=== PATIENT | male | born 1980 | race African-American/Black ===

== ENCOUNTER 2018-06-01 21:58 | Emergency (ER) | payer SELFPAY ==
[~2018-06-01] VITALS: Ht 193 cm; Wt 85.9 kg
[2018-06-01 21:59] VITALS: BP 122/83
--- NOTE | 2018-06-01 22:04 | NUR ---
EKG IN TRIAGE
--- NOTE | 2018-06-01 22:21 | NUR ---
PT ARRIVES TO ED WITH C/O OF CHEST PAIN WHEN COUGHING. STARTED THIS MORING AROUND 0600. PT REPORTS HE DOES HAVE SICKLE CELL ANEMIA BUT HAS NEVERE HAD A SEVERE CRISIS. PT REPORTSS THE CHEST PAIN IS LOCALIZED AND REPRODUCABLE. PT REPORTS NO RADIATION. PT DENIES SOB, NAUSEA, DIAPHORESIS. PT TO XRAY AT THIS TIME. AWAITING FURTHER ORDERS CALL LIGHT IN REACH.
--- NOTE | 2018-06-01 22:38 | NUR ---
Patient/Caregiver given discharge instructions and they have confirmed that they understand the instructions. Patient ambulatory with steady gait.
== END 2018-06-01 22:46 | disposition home or self-care (01) ==
LOC: ED 22:31
DX: R07.89 Other chest pain (principal)
CPT/HCPCS: 71046; 93005; 99283

== ENCOUNTER 2018-07-12 14:50 | Emergency (ER) | payer SELFPAY ==
[~2018-07-12] VITALS: Ht 193 cm; Wt 86.0 kg
[2018-07-12 15:01] VITALS: BP 121/81
[2018-07-12] MEDS ORDERED: AZITHROMYCIN 250 MG TABLET PO ONE (15:30)
[2018-07-12] MEDS ORDERED: CEFTRIAXONE 250 MG IM ONE (15:30)
[2018-07-12] MEDS ORDERED: CEFTRIAXONE 250 MG ONE (15:40)
[2018-07-12] MEDS ORDERED: AZITHROMYCIN 250 MG TABLET ONE (15:43)
== END 2018-07-12 16:47 | disposition home or self-care (01) ==
LOC: ED 16:17
DX: A56.8 Sexually transmitted chlamydial infection of other sites (principal); R10.31 Right lower quadrant pain; M79.604 Pain in right leg
CPT/HCPCS: 73502; 87491; 87591; 96372; 99284; J0696

== ENCOUNTER 2018-09-05 10:57 | Emergency (ER) | payer SELFPAY ==
--- NOTE | 2018-09-05 11:05 | NUR ---
NIL X 1
--- NOTE | 2018-09-05 11:14 | NUR ---
NIL X 2
--- NOTE | 2018-09-05 11:24 | NUR ---
NIL X 3
== END 2018-09-05 11:43 | disposition left against medical advice (07) ==
LOC: ED 11:37
DX: M54.5 Low back pain (principal); Z53.21 Procedure and treatment not carried out due to patient leaving prior to being seen by health care provider

== ENCOUNTER 2018-11-22 10:37 | Emergency (ER) | payer MEDICAID ==
[~2018-11-22] VITALS: Ht 193 cm; Wt 86.0 kg
--- NOTE | 2018-11-22 11:01 | NUR ---
PT C/O LLAQ ABD PAIN CONTINUED SINCE BEING HERE FOR CONSTIPATION. PT HAD RELIEF WITH MIRALAX FOR CONSTIPATION BUT REPORTS TRYING GAS EX WITH NO RELIEF AND DOES GET RELIEF WITH BURPING. PT DENIES TROUBLE VOIDING, FEVERS/CHILLS. JJ PAC AT BEDSIDE.
[2018-11-22 11:28] LABS: BASOPHILS # (AUTO) 0.01 x10^3/uL (0-0.1); BASOPHILS % (AUTO) 0 % (0-1); EOSINOPHILS % (AUTO) 6 % (1-7); LYMPHOCYTES # (AUTO) 1.32 x10^3/uL (1-3.4); LYMPHOCYTES % (AUTO) 26 % (22-44); MD NO; MEAN CORPUSCULAR HEMOGLOBIN 29.1 pg (27.5-34.5); MEAN CORPUSCULAR HGB CONC 32.8 g/dL (33.2-36.2); MEAN CORPUSCULAR VOLUME 88.5 fL (81-97); MEAN PLATELET VOLUME 8.5 fL (7.4-10.4); MONOCYTES # (AUTO) 0.38 x10^3/uL (0.2-0.8); MONOCYTES % (AUTO) 8 % (2-9); NEUTROPHILS # (AUTO) 3.13 x10^3/uL (1.8-6.8); NEUTROPHILS % (AUTO) 61 % (42-75); PLATELET COUNT 185 x10^3/uL (130-400); RED BLOOD COUNT 5.64 x10^6/uL (4.38-5.82); RED CELL DISTRIBUTION WIDTH 13.8 % (9.4-14.8)
[2018-11-22 11:37] LABS: ALBUMIN 4.2 g/dL (3.4-5.0); ANION GAP 6 mmol/L (5-15); CALCIUM 9.3 mg/dL (8.5-10.1); CHLORIDE 108 mmol/L (98-107)
[2018-11-22 11:40] LABS: ALANINE AMINOTRANSFERASE 17 U/L (12-78); ALKALINE PHOSPHATASE 79 U/L (45-117); BILIRUBIN,TOTAL 2.2 mg/dL (0.2-1.0); CREATININE 1.15 mg/dL (0.7-1.3); TOTAL PROTEIN 7.7 g/dL (6.4-8.2)
--- NOTE | 2018-11-22 12:12 | NUR ---
PT IN CT.
[2018-11-22 12:21] VITALS: BP 116/64
[2018-11-22] MEDS ORDERED: OMNIPAQUE 350 MG/ML, 100ML BOTTLE ONE (12:21)
== END 2018-11-22 12:59 | disposition home or self-care (01) ==
LOC: ED 12:53
DX: R10.32 Left lower quadrant pain (principal)
CPT/HCPCS: 36415; 74177; 80053; 83690; 85025; 99284; Q9967

== ENCOUNTER 2018-12-16 15:34 | Inpatient (IN) | payer MEDICAID ==
[~2018-12-16] VITALS: Ht 193 cm; Wt 92.0 kg
--- NOTE | 2018-12-16 15:50 | NUR ---
ER PROVIDER IN TO EVAL PT
--- NOTE | 2018-12-16 16:22 | NUR ---
PIV INITITATED, LABS DRAWN, PT TO GO TO CTA
[2018-12-16] MEDS ORDERED: SODIUM CHLORIDE FLUSH 10ML SYR IVF ONE (16:30)
[2018-12-16 16:40] LABS: BASOPHILS # (AUTO) 0.03 x10^3/uL (0-0.1); BASOPHILS % (AUTO) 1 % (0-1); EOSINOPHILS # (AUTO) 0.51 x10^3/uL (0-0.4); EOSINOPHILS % (AUTO) 10 % (1-7); LYMPHOCYTES # (AUTO) 1.42 x10^3/uL (1-3.4); LYMPHOCYTES % (AUTO) 28 % (22-44); MD NO; MEAN CORPUSCULAR HEMOGLOBIN 28.8 pg (27.5-34.5); MEAN CORPUSCULAR HGB CONC 32.8 g/dL (33.2-36.2); MEAN CORPUSCULAR VOLUME 88.1 fL (81-97); MEAN PLATELET VOLUME 8.9 fL (7.4-10.4); MONOCYTES # (AUTO) 0.29 x10^3/uL (0.2-0.8); MONOCYTES % (AUTO) 6 % (2-9); NEUTROPHILS # (AUTO) 2.91 x10^3/uL (1.8-6.8); NEUTROPHILS % (AUTO) 56 % (42-75); PLATELET COUNT 177 x10^3/uL (130-400); RED BLOOD COUNT 5.39 x10^6/uL (4.38-5.82)
[2018-12-16 16:53] LABS: ALANINE AMINOTRANSFERASE 21 U/L (12-78); ALBUMIN 4.2 g/dL (3.4-5.0); ANION GAP 5 mmol/L (5-15); CALCIUM 8.9 mg/dL (8.5-10.1); CHLORIDE 113 mmol/L (98-107); CREATININE 1.17 mg/dL (0.7-1.3)
[2018-12-16 16:55] LABS: ALKALINE PHOSPHATASE 80 U/L (45-117); BILIRUBIN,TOTAL 1.2 mg/dL (0.2-1.0); TOTAL PROTEIN 7.6 g/dL (6.4-8.2)
--- NOTE | 2018-12-16 17:15 | NUR ---
PT TO CT
[2018-12-16] MEDS ORDERED: OMNIPAQUE 350 MG/ML, 100ML BOTTLE ONE (17:36)
--- NOTE | 2018-12-16 17:47 | NUR ---
CT RESULTED, VS UPDATED, ER PROVIDER IN TO UPDATE PT
--- NOTE | 2018-12-16 17:52 | NUR ---
PT PLACED ON CONT PULSE OX, CARD MONITOR, NIBP MONITORING.
--- NOTE | 2018-12-16 18:08 | NUR ---
DR GEORGE TO BEDSIDE.
[2018-12-16] MEDS ORDERED: APIXABAN 5 MG TABLET ONE (18:21)
--- NOTE | 2018-12-16 18:35 | NUR ---
PER DORIS, START ORDERED ELIQUIS DOSE NOW. ORDERED BID STARTING AT 2100. WILL CALL PHARMACY TO RESCHEDULE.
[2018-12-16 18:41] LABS: TROPONIN I < 0.015 ng/mL (0.000-0.045)
--- NOTE | 2018-12-16 18:53 | NUR ---
REPORT TO CHAPINCITO MORALES
[2018-12-16 19:59] VITALS: BP 120/73
[2018-12-16] MEDS ORDERED: TEMAZEPAM 15 MG CAPSULE PO PRN (20:30)
[2018-12-16] MEDS ORDERED: DOCUSATE 100 MG CAPSULE PO PRN (20:30)
[2018-12-16] MEDS ORDERED: ACETAMINOPHEN 325 MG TABLET PO PRN (20:30)
[2018-12-16] MEDS ORDERED: IBUPROFEN 600 MG TABLET PO PRN (20:30)
[2018-12-16] MEDS ORDERED: APIXABAN 5 MG TABLET PO SCH (21:00)
[2018-12-16 21:32] LABS: INTERNATIONAL NORMALIZED RATIO 1.07 (0.93-1.1); PROTHROMBIN TIME 11.2 Seconds (9.6-11.5)
[2018-12-16 21:44] VITALS: BP 120/74
[2018-12-17 02:12] VITALS: BP 107/64
[2018-12-17 07:05] VITALS: BP 118/69
[2018-12-17] MEDS: APIXABAN 5 MG TABLET PO SCH ×2 (08:22→20:06)
[2018-12-17 13:08] VITALS: BP 108/68
[2018-12-17 19:05] VITALS: BP 108/64
[2018-12-18 01:50] VITALS: BP 115/67
[2018-12-18 05:32] LABS: BASOPHILS # (AUTO) 0.03 x10^3/uL (0-0.1); BASOPHILS % (AUTO) 1 % (0-1); EOSINOPHILS # (AUTO) 0.62 x10^3/uL (0-0.4); EOSINOPHILS % (AUTO) 14 % (1-7); LYMPHOCYTES # (AUTO) 1.55 x10^3/uL (1-3.4); LYMPHOCYTES % (AUTO) 34 % (22-44); MD NO; MEAN CORPUSCULAR HEMOGLOBIN 28.6 pg (27.5-34.5); MEAN CORPUSCULAR VOLUME 89.3 fL (81-97); MEAN PLATELET VOLUME 9.2 fL (7.4-10.4); MONOCYTES # (AUTO) 0.28 x10^3/uL (0.2-0.8); MONOCYTES % (AUTO) 6 % (2-9); NEUTROPHILS # (AUTO) 2.08 x10^3/uL (1.8-6.8); NEUTROPHILS % (AUTO) 46 % (42-75); PLATELET COUNT 145 x10^3/uL (130-400); RED BLOOD COUNT 5.21 x10^6/uL (4.38-5.82); RED CELL DISTRIBUTION WIDTH 13.7 % (9.4-14.8)
[2018-12-18 05:45] LABS: ANION GAP 8 mmol/L (5-15); CALCIUM 8.7 mg/dL (8.5-10.1); CHLORIDE 111 mmol/L (98-107)
[2018-12-18 05:46] LABS: CREATININE 1.12 mg/dL (0.7-1.3)
[2018-12-18 06:56] VITALS: BP 107/68
[2018-12-18] MEDS ORDERED: ACET325T26 PO (07:54)
[2018-12-18] MEDS ORDERED: APIX5TAB PO (07:54)
[2018-12-18] MEDS ORDERED: MAGNESIUM SULFATE PMX 2GM/50ML 50 ML IV ONE (08:00)
[2018-12-18] MEDS: APIXABAN 5 MG TABLET PO SCH (08:04)
[2018-12-18] MEDS ORDERED: MAGNESIUM OXIDE 400 MG TABLET PO SCH (08:30)
[2018-12-23] MEDS ORDERED: APIXABAN 5 MG TABLET PO SCH (21:00)
== END 2018-12-18 10:43 | disposition home or self-care (01) | DRG 551 ==
LOC: ED 18:53 → EDIP 19:01 → 4EST 19:52 → 5SO 21:27 → DCLOUNGE 12-18 10:28
PROVIDERS: ADMIT Family Medicine; ATTEND Family Medicine
DX: M54.41 Lumbago with sciatica, right side (principal); I26.99 Other pulmonary embolism without acute cor pulmonale; D68.59 Other primary thrombophilia; E87.6 Hypokalemia; M54.42 Lumbago with sciatica, left side; Z79.01 Long term (current) use of anticoagulants
CPT/HCPCS: 36415; 71275; 80048; 80053; 83690; 83735; 84484; 85025; 85384; 85610; 85730; 86140; 93005; 93306; 93970; G0378; Q9967

== ENCOUNTER 2019-05-01 11:45 | Emergency (ER) | payer MEDICAID ==
[~2019-05-01] VITALS: Ht 193 cm; Wt 88.8 kg
[~2019-05-01 11:45] MED LIST: ACET325T26 PO; APIX5TAB PO
[2019-05-01 11:46] VITALS: BP 160/88
== END 2019-05-01 12:37 | disposition home or self-care (01) ==
LOC: ED 12:36
DX: K08.89 Other specified disorders of teeth and supporting structures (principal)
CPT/HCPCS: 99283

== ENCOUNTER 2019-06-28 21:45 | Emergency (ER) | payer MEDICAID ==
[~2019-06-28] VITALS: Ht 193 cm; Wt 88.4 kg
--- NOTE | 2019-06-28 22:15 | NUR ---
Pt in [facility], vitals monitors applied, requesting pain medication for sciatic pain, ERP updated. Notified pt per ERP awaiting for CT head before medications can be prescribed.
--- NOTE | 2019-06-28 22:27 | NUR ---
pt to ct
[2019-06-28] MEDS ORDERED: IBUPROFEN 800 MG TABLET ONE (22:50)
[2019-06-28] MEDS ORDERED: METHOCARBAMOL 750 MG TABLET ONE (22:51)
[2019-06-28 22:54] VITALS: BP 105/60
[2019-06-28] MEDS ORDERED: IBUPROFEN 800 MG TABLET PO ONE (23:00)
[2019-06-28] MEDS ORDERED: METHOCARBAMOL 750 MG TABLET PO ONE (23:00)
== END 2019-06-28 22:57 | disposition home or self-care (01) ==
LOC: ED 22:12
DX: S06.0X0A Concussion without loss of consciousness, initial encounter (principal); M54.41 Lumbago with sciatica, right side; F17.200 Nicotine dependence, unspecified, uncomplicated; X58.XXXA Exposure to other specified factors, initial encounter; Y93.67 Activity, basketball; Y92.328 Other athletic field as the place of occurrence of the external cause; Y99.8 Other external cause status
CPT/HCPCS: 70450; 99284

== ENCOUNTER 2020-09-04 14:42 | Emergency (ER) | payer MEDICAID ==
[~2020-09-04] VITALS: Ht 193 cm; Wt 93.6 kg
[2020-09-04 14:50] VITALS: BP 109/61
--- NOTE | 2020-09-04 15:11 | NUR ---
PT TAKEN BACK TO ROOM FROM TRIAGE. PT STATED THAT HE HAS HAD RIGHT JAW/EAR PAIN X1 WEEK. PT STATED THAT HE ONLY FEELS PAIN WHEN HE OPENS HIS MOUTH OR TRIES TO EAT. PT DENIES ANY RECENT ILLNESS/FEVER OR TRAUMA TO THE FACE.
[2020-09-04] MEDS ORDERED: KETOROLAC 30 MG/1 ML ONE (15:22)
[2020-09-04] MEDS ORDERED: KETOROLAC 30 MG/1 ML IM ONE (15:30)
--- NOTE | 2020-09-04 15:34 | NUR ---
DISCHARGE INSTRUCTIONS REVIEWED WITH PT. ALL QUESTIONS ANSWERED AT THIS TIME
== END 2020-09-04 15:36 | disposition home or self-care (01) ==
LOC: ED 15:25
DX: M26.621 Arthralgia of right temporomandibular joint (principal)
CPT/HCPCS: 96372; 99283; J1885

== ENCOUNTER 2020-11-17 10:46 | Emergency (ER) | payer MEDICAID ==
[~2020-11-17] VITALS: Ht 193 cm; Wt 92.0 kg
[2020-11-17 10:50] VITALS: BP 106/65
--- NOTE | 2020-11-17 11:08 | NUR ---
PT WALKED BACK FROM TRIAGE WITH CHIEF COMPLAINT OF RIGHT SIDE GROIN PAIN SINCE PLAYING BASKETBALL YESTERDAY.
--- NOTE | 2020-11-17 12:30 | NUR ---
Ultrasound at bedside
== END 2020-11-17 13:18 | disposition home or self-care (01) ==
LOC: ED 10:50
DX: S39.011A Strain of muscle, fascia and tendon of abdomen, initial encounter (principal); X58.XXXA Exposure to other specified factors, initial encounter; Y93.89 Activity, other specified; Y92.89 Other specified places as the place of occurrence of the external cause; Y99.8 Other external cause status
CPT/HCPCS: 76857; 99284